=== PATIENT | female | born 1975 ===

== ENCOUNTER 2017-11-02 11:15 | Emergency (ER) | payer MEDICAID ==
[2017-11-02 11:20] VITALS: BMI 25.8
[2017-11-02 11:22] VITALS: BP 113/78; PULSE 71; RESP 16; TEMP 98.9; O2SAT 100
--- NOTE | 2017-11-02 13:05 | ED PDOC ---
Upper Extremity Pain/Injury Time Seen by Provider: 11/02/17 11:36 Chief Complaint (Nursing): Back Pain Chief Complaint (Provider): Left-sided Shoulder and Neck Pain History Per: Patient History/Exam Limitations: no limitations Onset/Duration Of Symptoms: Days (x 4) Current Symptoms Are (Timing): Still Present Additional Complaint(s): Ms. Huber is a 42 year old female, with a history of lupus, who presents to the emergency department complaining of left shoulder pain and left-sided neck pain for 4 days. Patient states pain started gradually and worsens everyday. Pain is significant today, prompting ED visit today. Patient takes no medications for pain. Patient reports inflammation and swelling to her left- shoulder muscle. Reports pain is worse when moving her shoulder and neck. Denies any injuries or heavy lifting. Denies taking any medication for pain. No other medical complaints at this time. PMD: Provider TBD Past Medical History Reviewed: Historical Data, Nursing Documentation, Vital Signs Vital Signs: Last Vital Signs Temp 98.9 F 11/02/17 11:20 Pulse 71 11/02/17 11:20 Resp 16 11/02/17 11:20 BP 113/78 11/02/17 11:20 Pulse Ox 100 11/02/17 11:20 - Medical History PMH: Denies: Chronic Kidney Disease Other PMH: Lupus - Surgical History Surgical History: Cholecystectomy, (x3) - Family History Family History: States: Unknown Family Hx - Social History Current smoker - smoking cessation education provided: No Alcohol: None Drugs: Denies - Home Medications Home Medications: Ambulatory Orders Medication Instructions Recorded Dicyclomine [Bentyl] 20 mg PO BID PRN #30 tab 08/19/16 Ondansetron [Zofran] 4 mg PO Q8H PRN #30 tab 08/19/16 Cyclobenzaprine [Cyclobenzaprine 10 mg PO TID PRN #15 tab 11/02/17 HCl] Naproxen [Naprosyn] 500 mg PO BID PRN #30 tab 11/02/17 - Allergies Allergies/Adverse Reactions: Allergies Allergy/AdvReac Type Severity Reaction Status Date / Time No Known Allergies Allergy Verified 08/19/16 15:32 Review of Systems ROS Statement: Except As Marked, All Systems Reviewed And Found Negative Musculoskeletal: Positive for: Neck Pain (left-sided), Shoulder Pain (left-sided ) Physical Exam - Reviewed Nursing Documentation Reviewed: Yes Vital Signs Reviewed: Yes - Physical Exam Appears: Positive for: Well, Non-toxic Head Exam: Positive for: ATRAUMATIC, NORMAL INSPECTION Skin: Positive for: Warm Eye Exam: Positive for: EOMI Cardiovascular/Chest: Positive for: Regular Rate, Rhythm Respiratory: Negative for: Respiratory Distress Extremity: Positive for: Normal ROM (Full ROM), Other (Left shoulder- (-): Swelling; Trapezius muscle- (+) Diffuse tenderness upper and lower portion, (-) redness). Negative for: Deformity Neurologic/Psych: Positive for: Alert, Oriented - ECG O2 Sat by Pulse Oximetry: 100 Medical Decision Making Medical Decision Making: Time: 11:59 Impression(s): Left shoulder pain and muscle pain Differentials include, but not limited to: Muscle sprain, Arthritis, Myositis Plan: - Flexeril 10 mg PO STAT - Toradol 30 mg IM Scribe Attestation: Documented by Alton Miller, acting as a scribe for Barbara Squires MD. Provider Scribe Attestation: All medical record entries made by the Scribe were at my direction and personally dictated by me. I have reviewed the chart and agree that the record accurately reflects my personal performance of the history, physical exam, medical decision making, and the department course for this patient. I have also personally directed, reviewed, and agree with the discharge instructions and disposition. Disposition - Clinical Impression Clinical Impression: Muscle pain - Patient ED Disposition Is Patient to be Admitted: No Doctor Will See Patient In The: Office Counseled Patient/Family Regarding: Studies Performed, Diagnosis, Need For Followup - Disposition Referrals: [facility] [Outside] Disposition: Routine/Home Disposition Time: 14:12 Condition: GOOD Additional Instructions: Take your medications as instructed. Follow up with your PCP in 2-3 days. Prescriptions: Cyclobenzaprine [Cyclobenzaprine HCl] 10 mg PO TID PRN #15 tab PRN Reason: Muscle Spasm Naproxen [Naprosyn] 500 mg PO BID PRN #30 tab PRN Reason: Pain Instructions: Muscle and Bone Pain (DC) Print Language: ROMANIAN
== END 2017-11-02 14:26 | disposition home or self-care (01) ==
LOC: H.ER 11:15
DX: M25.512 Pain in left shoulder (principal); M54.2 Cervicalgia; M32.9 Systemic lupus erythematosus, unspecified
CPT/HCPCS: 81025; 96372; 99283; J1885

== ENCOUNTER 2018-08-08 16:28 | Emergency (ER) | payer MEDICAID ==
[2018-08-08 16:28] VITALS: BMI 25.8
--- NOTE | 2018-08-08 17:45 | ED PDOC ---
HPI: Influenza Time Seen by Provider: 08/08/18 17:11 Chief Complaint: Flu-like Symptoms Chief Complaint (Provider): Flu-like Symptoms History Per: Patient Exam Limitations: no limitations Onset/Duration Of Symptoms: Days (x2) Additional complaint(s):: 42 year old female with no significant pmHx, presents to ED with complaints of general bodyaches, headache, left-sided ear pain, chills, sore throat, and decreased appetite for the last 3 days. Today, patient reports a fever and took Advil for relief - last dose at 0800 earlier today. Patient has difficulty swallowing but able to tolerate water. Otherwise, she denies nasal congestion, cough, vomiting, diarrhea, dizziness, or visual changes. 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 PCP: Dr. Ramila Palacios Past Medical History Reviewed: Historical Data, Nursing Documentation, Vital Signs Vital Signs: Last Vital Signs Temp 102.7 F H 08/08/18 16:47 Pulse 112 H 08/08/18 16:47 Resp 18 08/08/18 16:47 BP 118/70 08/08/18 16:47 Pulse Ox 97 08/08/18 16:47 - Medical History PMH: No Chronic Diseases Denies: Chronic Kidney Disease - Surgical History Surgical History: Cholecystectomy, (x3) - Family History Family History: States: Unknown Family Hx - Home Medications Home Medications: Ambulatory Orders Medication Instructions Recorded Dicyclomine [Bentyl] 20 mg PO BID PRN #30 tab 08/19/16 Ondansetron [Zofran] 4 mg PO Q8H PRN #30 tab 08/19/16 Cyclobenzaprine [Cyclobenzaprine 10 mg PO TID PRN #15 tab 11/02/17 HCl] Naproxen [Naprosyn] 500 mg PO BID PRN #30 tab 11/02/17 Acetaminophen [Tylenol 325mg tab] 650 mg PO Q6 PRN 5 Days tab 08/08/18 Amoxicillin [Amoxil 500 mg Cap] 500 mg PO BID 10 Days cap 08/08/18 Ibuprofen [Motrin Tab] 600 mg PO Q6 PRN 5 Days tab 08/08/18 - Allergies Allergies/Adverse Reactions: Allergies Allergy/AdvReac Type Severity Reaction Status Date / Time No Known Allergies Allergy Verified 08/19/16 15:32 Review of Systems ROS Statement: Except As Marked, All Systems Reviewed And Found Negative Constitutional: Positive for: Fever, Chills, Other (general bodyaches) Eyes: Negative for: Vision Change ENT: Positive for: Ear Pain (left-sided), Throat Pain. Negative for: Nose Congestion Respiratory: Negative for: Cough Gastrointestinal: Positive for: Other (decreased appetite). Negative for: Vomiting, Diarrhea Neurological: Positive for: Headache. Negative for: Dizziness Physical Exam - Reviewed Nursing Documentation Reviewed: Yes Vital Signs Reviewed: Yes - Physical Exam Appears: Positive for: Uncomfortable Head Exam: Positive for: ATRAUMATIC, NORMAL INSPECTION, NORMOCEPHALIC Skin: Positive for: Normal Color Eye Exam: Positive for: EOMI, PERRL, Conjunctival injection (bilateral) ENT: Positive for: TM Is/Are (nonerythematous and nonbulging), Pharyngeal Er ythema, Tonsillar Swelling. Negative for: Nasal Congestion, Tonsillar Exudate Neck: Positive for: Normal, Supple Cardiovascular/Chest: Positive for: Regular Rate, Rhythm, Chest Non Tender Respiratory: Positive for: Normal Breath Sounds. Negative for: Wheezing, Respiratory Distress Gastrointestinal/Abdominal: Positive for: Normal Exam, Soft. Negative for: Tenderness, Guarding, Rebound Extremity: Positive for: Normal ROM (upper/lower) Lymphatic: Negative for: Adenopathy Neurologic/Psych: Positive for: Alert, Oriented Medical Decision Making Medical Decision Making: Time: 1729 Initial Plan: * Tylenol 650mg PO * Influenza A B * Rapid strep 1824 Lab results clinically significant for strep and negative for flu. Patient given 500mg PO amoxicillin in the ED at this time and is to be sent home with prescription. Scribe Attestation: Documented by Marya Meraz, acting as a scribe for JOSÉ LUIS Boyd Provider Scribe Attestation: All medical record entries made by the Scribe were at my direction and personally dictated by me. I have reviewed the chart and agree that the record accurately reflects my personal performance of the history, physical exam, medical decision making, and the department course for this patient. I have also personally directed, reviewed, and agree with the discharge instructions and disposition. - ECG O2 Sat by Pulse Oximetry: 97 Disposition - Clinical Impression Clinical Impression: Group A streptococcal infection - Patient ED Disposition Is Patient to be Admitted: No Counseled Patient/Family Regarding: Studies Performed, Diagnosis, Rx Given - Disposition Referrals: Ramila Palacios MD [Family Provider] - Disposition: Routine/Home Disposition Time: 18:33 Condition: STABLE Additional Instructions: Take Tylenol or Motrin for fevers/body aches. Return to ER if you develop worsening throat pain and cannot swallow. Take full course of antibiotics as prescribed. Prescriptions: Acetaminophen [Tylenol 325mg tab] 650 mg PO Q6 PRN 5 Days tab PRN Reason: Fever >100.4 F Amoxicillin [Amoxil 500 mg Cap] 500 mg PO BID 10 Days cap Ibuprofen [Motrin Tab] 600 mg PO Q6 PRN 5 Days tab PRN Reason: Fever >100.4 F Forms: [employer] ([place]), [facility] School/Work Excuse Print Language: TURKISH
[2018-08-08 18:36] VITALS: BP 110/78; PULSE 92; RESP 16; TEMP 99.2
[2018-08-09 00:40] VITALS: O2SAT 97
== END 2018-08-08 18:42 | disposition home or self-care (01) ==
LOC: H.ER 16:28
DX: J02.0 Streptococcal pharyngitis (principal); M79.10 Myalgia, unspecified site